=== PATIENT | female | born 1965 | race Caucasian/White ===

== ENCOUNTER → 2016-10-12 | Outpatient (CLI) | payer OTHER ==
--- NOTE | 2016-10-12 15:57 | MA ---
Screening Digital Mammogram With Tomosynthesis Clinical Indications: Routine screening. Technique: Standard digital cephalocaudal and tomosynthesis mediolateral oblique projections are obt ained. The digital images were processed by the [employer] computer aided detection system. Comparison: September 2015, September 2014, July 2013 and December 2011 Breast density: B; There are scattered fibroglandular densities. Findings: CAD was reviewed. No suspicious findings are identified. Impression: Negative mammogram. BI-RADS 1. Recommendation: Routine screening is recommended in one year. [facility] will send a result letter to the patient. Negative mammography should not preclude additional workup of a clinically suspicious finding. The patient's information is entered into a reminder system with a target due date for her next mammo gram.
== END ==
LOC: FIMAGING 15:23
DX: Z12.31 Encounter for screening mammogram for malignant neoplasm of breast (principal)
CPT/HCPCS: G0202

== ENCOUNTER 2017-08-19 05:22 | Day surgery (SDC) | payer OTHER ==
--- NOTE | 2017-08-09 19:21 | GHP ---
[f rep st] PREOP HISTORY AND PHYSICAL DATE OF ADMISSION: 08/19/2017 PREOPERATIVE DIAGNOSIS: Dysfunctional uterine bleeding and menorrhagia. PLANNED PROCEDURE: Hysteroscopy with morcellation of endometrial tissue and an endometrial ablation. INDICATIONS: The patient is a 51-year-old, 3, para 3-0-0-3, who had had normal monthly cycle s until July of 2016. She then has had increased episodes of dysfunctional uterine bleeding. She has bled for up to 6 weeks at a time and then had episodes of 8 weeks of spotting. Labs were obtain ed which were normal pelvic ultrasound showed a thickened endometrium of 1 cm, even after completing bleeding. An endometrial biopsy was performed, which showed benign endometrium in late secretory phase. Manage ment options were reviewed extensively with the patient including expected management, giving the pat ient an additional withdrawal bleed, cycling patient on control pills, Mirena IUD, and a hyster oscopy with morcellation of endometrial tissue and an endometrial ablation. The patient has elected to proceed with the endometrial ablation. Risks and benefits were extensively reviewed with the cameron ent and the patient has been properly consented. She has been informed that there is a 70% amenorrhe a rate with this surgery. MEDICAL HISTORY: ADHD, hypertension, history of depression, possible anxiety, history of urinary incontinence. MEDICATIONS: Magnesium, ROSALIA supplement, super B complex, zinc, 5 HTP supplement, vitamin D, hydroch lorothiazide 25 mg a day, Evekeo 5 mg a day, which is a medicine for ADHD. PAST SURGICAL HISTORY: section with tubal ligation and colonoscopy. ALLERGIES: Penicillin which causes hives. Levaquin which causes a rash. Ceftin which causes a rash . Erythromycin which causes a rash. Sulfa which causes a rash. SOCIAL HISTORY: Patient is . She denies tobacco or drug use. She does drink 4 alcoholic alicia erages a week. FAMILY MEDICAL HISTORY: Noncontributory. PCU RN HISTORY: Menarche age 14. Periods have been monthly until the last several months. She is a 3, para 3-0-0-3. In 1993, she had a spontaneous vaginal delivery of an 8 pound 15 ounce bab y. In 1999, she had a spontaneous vaginal delivery of a 9 pound 6 ounce baby. In 2003, she had a pr imary low transverse section for a 10 pound 2 ounce baby. She had a tubal ligation with her last delivery. The patient denies any history of any abnormal Pap smears or sexually transmitted di seases. REVIEW OF SYSTEMS: A 10-point review of systems is negative with the exception of the above-mentione d pertinent positives. PHYSICAL EXAMINATION: VITAL SIGNS: Patient's blood pressure is 130/78. Her weight is 177. GENERAL APPEARANCE: Alert and oriented x3. PSYCH: Appropriate affect. NECK: Mobile and supple. MUSCULO SKELETAL: Grossly intact. NEUROVASCULAR STATUS: Grossly intact. HEART: Rate is regular regular. LUNGS: Clear to auscultation bilaterally. ABDOMEN: Soft, nondistended, nontender. EXTREMITIES: Reveal no calf tenderness or edema. PELVIC: Exam revealed a mobile midposition uterus with no adnex al masses. DIAGNOSTIC TESTING: Pelvic ultrasound shows uterus measuring 9.8 x 5.5 x 5.1 cm with a thickened end ometrium at 1 cm and normal adnexa. Endometrial biopsy was negative. ASSESSMENT AND PLAN: A 51-year-old 3, para 3-0-0-3 with dysfunctional uterine bleeding. She will undergo a hysteroscopy with morcellation of endometrial tissue and an endometrial ablation. /[id number]/MODL
[2017-08-19] MEDS ORDERED: LIDOCAINE 1% 2 ML INJ ONE (05:54)
[2017-08-19] MEDS ORDERED: LIDOCAINE 1% 2 ML INJ ID PRN (05:58)
[2017-08-19] MEDS ORDERED: LR 1,000 ML IV ONE (05:58)
[2017-08-19] MEDS ORDERED: DOXYCYCLINE INJ 100 MG in NS 250 ML IV ONE (06:00)
[2017-08-19 06:09] VITALS: PULSE 82
--- NOTE | 2017-08-19 06:44 | PDANEPAE ---
ANE History of Present Illness 51 yo F here for hysteroscopy ANE Past Medical History - Cardiovascular History Hx Hypertension: Yes Hx Arrhythmias: No Hx Chest Pain: No Hx Coronary Artery / Peripheral Vascular Disease: No Hx CHF / Valvular Disease: No Hx Palpitations: No - Pulmonary History Hx Asthma/Reactive Airway Disease: Yes Hx Recent Upper Respiratory Infection: No Hx Oxygen in Use at Home: No Hx Sleep Apnea: No Sleep Apnea Screening Result - Last Documented: Negative Pulmonary History Comment: ASTHMA ALLERGIES, SIG HX OF BRONCHITIS - Neurologic History Hx Cerebrovascular Accident: No Hx Seizures: No Hx Dementia: No Neurologic History Comment: ADD - Endocrine History Hx Diabetes: No - Renal History Hx Renal Disorders: No - Liver History Hx Hepatic Disorders: No - Neurological & Psychiatric Hx Hx Neurological and Psychiatric Disorders: Yes 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 - Cancer History Hx Cancer: No - Congenital Disorder History Hx Congenital Disorders: No - GI History Hx Gastrointestinal Disorders: No - Other Health History Other Health History: NONE - Chronic Pain History Chronic Pain: No - Surgical History Prior Surgeries: NONE ANE Review of Systems Review of Systems: - Exercise capacity METS (RN): 4 METS ANE Patient History - Allergies Allergies/Adverse Reactions: azithromycin Allergy (Verified 07/27/17 15:48) cefuroxime [From Ceftin] Allergy (Verified 07/27/17 15:48) levofloxacin [From Levaquin] Allergy (Verified 08/19/17 05:58) Penicillins Allergy (Verified 07/27/17 15:48) Sulfa (Sulfonamide Antibiotics) Allergy (Verified 07/27/17 15:48) - Home Medications Home medications: home medication list seen and reviewed Home Medications: Hydrochlorothiazide 07/27/17 [Last Taken 08/18/17] Amphetamine Sulfate [Evekeo] DAILY 08/19/17 [Last Taken 08/18/17] - NPO status NPO Status: no food or drink >8 hours NPO Since - Liquids (Date): 08/18/17 NPO Since - Liquids (Time): 23:37 NPO Since - Solids (Date): 08/18/17 NPO Since - Solids (Time): 19:45 - Anes Hx Anes Hx: no prior problems - Smoking Hx Smoking Status: Never smoked - Alcohol Use Alcohol Use: Rarely - Family Anes Hx Family Anes Hx: none Family Hx Anesthesia Complications: NONE ANE Labs/Vital Signs - Vital Signs Blood Pressure: 141/93 Heart Rate: 82 Respiratory Rate: 16 O2 Sat (%): 94 Height: 167.64 cm Weight: 77.111 kg ANE Physical Exam - Airway Neck exam: FROM Mallampati Score: Class 2 Mouth exam: normal dental/mouth exam - Pulmonary Pulmonary: no respiratory distress, clear to auscultation - Cardiovascular Cardiovascular: regular rate and rhythym, no murmur, rub, or gallop - ASA Status ASA Status: II ANE Anesthesia Plan Anesthesia Plan: GA w LMA
[2017-08-19] MEDS ORDERED: MIDAZOLAM 2 MG/2 ML VIAL IVP ONE (06:45)
[2017-08-19] MEDS ORDERED: ALBUTEROL 3 ML DEYVIAL IH ONE (06:45)
[2017-08-19] MEDS ORDERED: LIDOCAINE 2% 100 MG/5 ML SYR ONE (07:08)
[2017-08-19] MEDS ORDERED: PROPOFOL 200 MG/20 ML VIAL ONE (07:08)
[2017-08-19] MEDS ORDERED: fentaNYL 100 MCG/2 ML INJ ONE ×2 (07:08→09:09)
--- NOTE | 2017-08-19 07:24 | PDHPUP ---
History & Physical Update H&P update statement: This history and physical update is based on an assessment of the patient which was completed after admission or registration (within 24 hours), but prior to the surgery/procedure. H&P update: H&P reviewed & patient examined, no change in patient's condition since H&P completed
[2017-08-19] MEDS ORDERED: DEXAMETHASONE 4 MG/ML VIAL ONE (07:53)
[2017-08-19] MEDS ORDERED: ONDANSETRON 4 MG/2 ML VIAL ONE (07:53)
[2017-08-19] MEDS ORDERED: ALBUTEROL 3 ML DEYVIAL IH PRN (08:01)
[2017-08-19] MEDS ORDERED: NALOXONE HCL 0.4 MG/ML INJ IVP PRN (08:01)
[2017-08-19] MEDS ORDERED: ONDANSETRON 4 MG/2 ML VIAL IVP PRN (08:01)
[2017-08-19] MEDS ORDERED: OXYCODONE/APAP 5/325 TAB PO PRN (08:01)
[2017-08-19] MEDS ORDERED: HYDROCODONE/APAP 5/325 TAB PO PRN (08:01)
[2017-08-19] MEDS ORDERED: PROMETHAZINE HCL 25 MG/ML INJ IVP PRN (08:01)
[2017-08-19] MEDS ORDERED: ACETAMINOPHEN 500 MG TAB PO PRN (08:01)
[2017-08-19] MEDS ORDERED: SILVER NITRATE APPLICATOR 1 APPL TP ONE (08:17)
--- NOTE | 2017-08-19 08:31 | POSTOPPROG ---
Post Op Note Date of Operation: 08/19/17 Surgeon: Shira Park Anesthesiologist: maribel Anesthesia: LMA Pre-op Diagnosis: menorrhagia Post-op Diagnosis: same Procedure: hysteroscopy, morecellation of endometrial tisse and endometrial ablation Findings: thickened endometrium Inf/Abcess present in the surg proc area at time of surgery?: No EBL: Minimal Specimen(s): endometrial currettings
[2017-08-19] MEDS ORDERED: KETOROLAC 30 MG/1 ML SDV ONE (09:09)
[2017-08-19] MEDS ORDERED: fentaNYL 100 MCG/2 ML INJ IVP PRN (09:10)
[2017-08-19] MEDS ORDERED: KETOROLAC 30 MG/1 ML SDV IVP ONE (09:15)
[2017-08-19 09:49] VITALS: TEMP 96.8
[2017-08-19] MEDS ORDERED: DIAZEPAM 10 MG/2 ML SYR ONE (09:55)
[2017-08-19] MEDS ORDERED: DIAZEPAM 10 MG/2 ML SYR IVP ONE (10:00)
[2017-08-19 10:07] VITALS: BP 139/89
[2017-08-19 10:31] VITALS: RESP 16; O2SAT 93
--- NOTE | 2017-08-19 14:36 | GOP ---
[f rep st] OPERATIVE REPORT DATE OF OPERATION: 08/19/2017 SURGEON: Shira Park DO ANESTHESIA: General. ANESTHESIOLOGIST: Catalino Celaya MD. PREOPERATIVE DIAGNOSIS: Dysfunctional uterine bleeding and menorrhagia. POSTOPERATIVE DIAGNOSIS: Dysfunctional uterine bleeding and menorrhagia. PROCEDURE PERFORMED: Hysteroscopy with morcellation of endometrial tissue and endometrial ablation. FINDINGS: 1. Mobile midposition uterus with no adnexal masses. Uterus sounded to 9 cm. 2. Hysteroscopic findings: Thickened endometrium. Bilateral tubal ostia visualized. No obvious po lyps, fibroids, or masses. SPECIMENS: Endometrial curettings. ESTIMATED BLOOD LOSS: 10 cc. INDICATIONS: Patient is a 51-year-old 3, para 3-0-0-3, who has who had normal monthly cycles until July 2016, and she has begun having increased episodes of dysfunctional uterine bleeding si nce then. She has bled for up to 6 weeks at a time and has had episodes of 8 weeks of spotting. Lab s were obtained, which were normal. Pelvic ultrasound showed a thickened endometrium, even after she had just finished bleeding. An endometrial biopsy was benign. Management options were reviewed wit h the patient. Patient elected to proceed with a hysteroscopy with morcellation of endometrial tissu e and an endometrial ablation. Risks and benefits of the procedure were reviewed with the patient. Patient was properly consented. DESCRIPTION OF PROCEDURE: Patient was taken to the operating room with intravenous fluids in place. She was then placed on the operating room table in the dorsal supine position where general anesthes ia was obtained. She was given 100 mg of doxycycline intravenously. She was then repositioned into the dorsal lithotomy position with the Samyllofin stirrups and prepped and draped in normal sterile fas hion. Exam under anesthesia revealed a mobile, midposition uterus with no adnexal masses. A speculu m was then placed in the patient's vagina. An Allis clamp was used to grasp the anterior lip of the cervix, and the cervix was then carefully dilated to allow for the introduction of an operative hyste roscope. The hysteroscope was then introduced with fluid medium running. The Allis clamp kept comin g off the uterus, so a single-tooth tenaculum was used to grasp the anterior lip of the cervix. A sm all questionable polyp in the posterior endometrium was noted. The morcellator was then introduced, and a circumferential morcellation was performed. The uterus then sounded to 9 cm. The cervical talya gth was 6 cm. The Jeannette was then introduced with a cavity length of 6 cm, and the cavity assessment was performed and passed. Endometrial ablation was performed without difficulty. The Jeannette was then withdrawn. The hysteroscope was then reintroduced, and a diffusely ablated endometrial cavity was noted. A sm all laceration in the anterior cervix was noted, and it was repaired with 2-0 Vicryl in a figure-of-e ight stitch. Hemostasis was assured after that. Instruments were then removed the patient's vagina. Patient was returned to the dorsal supine position where she was easily awakened from anesthesia. Sponge count was correct. Patient was transported to the recovery room in stable condition. /[id number]/MODL
--- NOTE | 2017-08-22 16:22 | POSTANESTH ---
Post Anesthetic Evaluation Cardiovascular Status: Normal, Stable, Similar to Pre-Op Cond Respiratory Status: Normal, Stable, Similar to Pre-op Cond. Level of Consciousness/Mental Status: Can Participate in Eval, Alert and Oriented Pain Control: Adequate, Prn Tx Ordered Nausea/Vomiting Control: Adequate, Prn Tx Ordered Complications Possibly Related to Anesthesia: None Noted
== END 2017-08-19 10:37 | disposition home or self-care (01) ==
LOC: FSGY 05:22
PROVIDERS: ATTEND Obstetrics & Gynecology
PROC: 0U5B8ZZ Destruction of Endometrium, Via Natural or Artificial Opening Endoscopic (ICD-10-PCS; principal; 2017-08-19 07:15)
DX: N93.8 Other specified abnormal uterine and vaginal bleeding (principal); N92.0 Excessive and frequent menstruation with regular cycle; I10 Essential (primary) hypertension; F90.9 Attention-deficit hyperactivity disorder, unspecified type; Z88.0 Allergy status to penicillin; Z88.2 Allergy status to sulfonamides
CPT/HCPCS: 58563; C1782; J1100; J1885; J2001; J2250; J2405; J2704; J3010

== ENCOUNTER → 2017-10-17 | Outpatient (CLI) | payer OTHER | LOC: FIMAGING 12:22 | PROVIDERS: ATTEND Family Medicine | DX: Z12.31 Encounter for screening mammogram for malignant neoplasm of breast (principal) ==

== ENCOUNTER 2018-09-19 07:15 | Inpatient (IN) | payer OTHER ==
--- NOTE | 2018-09-18 23:29 | GHP ---
DATE OF ADMISSION: 09/19/2018 HISTORY: Upon presentation, the patient is a 52-year-old para 3 white female, who has had dysfunctional perimenopausal bleeding since the summer. The patient had a neg EMBx then an endometrial ablation to manage the bleeding in August 2017. That took care of the bleeding, but since that time, patient has had episodes of pelvic pain beginning in June 2018. The patient has been evaluated in the emergency room for these episodes of intense pain and menstrual-type cramping. Patient had a CAT scan performed showing an endometrial fluid collection that was complex in nature that was 4 cm. The patient had a followup Ultrasound 2 months later, which revealed an increase in the endometrial fluid at 5.5 cm. The patient had an attempted procedure in the office to access the endometrial fluid collection and to dilate the cervix for drainage. This was unsuccessful and very painful for the patient. The patient now wants definitive management to resolve the pelvic pain, as well as have definitive evaluation that there is nothing pathologic above in the uterus. The patient desires an abdominal hysterectomy. She opts for this route to be able to keep her cervix, which she feels is closely tied to her sexual pleasure. The patient wants a supracervical hysterectomy, as well as a bilateral salpingectomy. The patient has started to get some hormone variability, but does not want to have her ovaries removed. The patient has been counseled about the potential need for additional surgery with a trachelectomy or surgery to remove ovarian cysts or concern for ovarian cancer. Risks and benefits of the surgery discussed. The patient will sign consent form on the day of surgery. The patient intends for the surgery to be combined with Dr. Henry of plastic surgery to perform an abdominoplasty. PAST MEDICAL HISTORY: Hypertension, attention deficit hyperactivity disorder, depression, perimenopausal symptoms and pelvic pain as noted above. PAST SURGICAL HISTORY: section with tubal ligation. PAST OBSTETRIC HISTORY: Three term pregnancies. Two delivered vaginally in 1993 and 1999. section with tubal ligation in 2003. ALLERGIES: Penicillin, cephalosporins, Levaquin, erythromycin, and sulfa all causing rashes. MEDICATIONS: Ritalin, HCTZ, and multiple other supplements. SOCIAL HISTORY: The patient is and lives with her and report that they have a very active, wonderful sexual life. The patient's youngest child lives at a boarding school in [place], and she has an 18-year-old and 20-year-old. The patient is a nonsmoker. No alcohol or drug use. FAMILY HISTORY: Both parents with hypertension, Father and sisters with depression, Dad with hypothyroidism. LABORATORY DATA: Recent labs reveal a complete metabolic panel and a CBC that were normal early September 2018. Hemoglobin and hematocrit 14 and 42. Platelets normal. IMAGING: Most recent ultrasound is July 2018, at which time the uterus was measuring 11 x 7.5 x 7.7 cm with an endometrial thickness of 3.95 cm, filled with a complex fluid collection 5.6 x 5.5 mL. Bilateral ovaries were seen and were normal. PHYSICAL EXAMINATION: VITAL SIGNS: Blood pressure 120/70, weight 171 pounds, afebrile. GENERAL: At the time of preop, the patient is a well-developed, well -nourished white female in no physical discomfort. General description the patient is mildly anxious discussing the variables of having surgery. LUNGS: Clear to auscultation bilaterally. CARDIOVASCULAR: Regular rate and rhythm. ABDOMEN: Soft, nontender. PELVIC: Exam was deferred. EXTREMITIES: Nontender , no edema. ASSESSMENT: Pelvic pain with a complex fluid collection in the endometrium. PLAN: Will proceed with supracervical abdominal hysterectomy with bilateral salpingectomy in concert with Dr. Henry of plastic surgery. We will have the patient sign consent form on the morning of surgery. She will receive preoperative antibiotics and have on SCDs during the procedure. /[id number]/MODL MTDD
[~2018-09-19 07:15] MED LIST: ALBUTEROL 60 PUFFS/8 GM MDI IH PRN; BACITRACIN ZINC 0.5 OZ OINTTUBE TP ONE; BUPIVACAINE 0.5% 30 ML SDV ONE; EPINEPHrine 1 MG/ML INJ ONE; LIDOCAINE 1% 300 MG/30 ML SDV ONE; METHYLENE BLUE 0.5% 50 MG/10 ML AMP ONE; SURGIFLO MATRIX KIT WITH THROMBIN 8 ML TP ONE; VANCOMYCIN 1 GM in NS 250 ML IV ONE; VANCOMYCIN HCL/NORMAL SALINE 250 ML IV ONE; VANCOMYCIN PHARMACY TO DOSE MISC ONE
[2018-09-19] MEDS ORDERED: LIDOCAINE 1% 2 ML INJ ID PRN (07:23)
[2018-09-19] MEDS ORDERED: LR 1,000 ML IV ONE (07:23)
--- NOTE | 2018-09-19 07:52 | PDANEPAE ---
ANE History of Present Illness Abdominal hyst, salpingectomy, abdominoplasty ANE Past Medical History - Cardiovascular History Hx Hypertension: Yes Hx Arrhythmias: No Hx Chest Pain: No Hx Coronary Artery / Peripheral Vascular Disease: No Hx CHF / Valvular Disease: No Hx Palpitations: No - Pulmonary History Hx Asthma/Reactive Airway Disease: Yes Hx Recent Upper Respiratory Infection: No Hx Oxygen in Use at Home: No Hx Sleep Apnea: No Sleep Apnea Screening Result - Last Documented: Negative Pulmonary History Comment: ASTHMA ALLERGIES, SIG HX OF BRONCHITIS - Neurologic History Hx Cerebrovascular Accident: No Hx Seizures: No Hx Dementia: No Neurologic History Comment: ADD - Endocrine History Hx Diabetes: No - Renal History Hx Renal Disorders: No - Liver History Hx Hepatic Disorders: No - Neurological & Psychiatric Hx Hx Neurological and Psychiatric Disorders: Yes 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 ADD - Cancer History Hx Cancer: No - Congenital Disorder History Hx Congenital Disorders: No - GI History Hx Gastrointestinal Disorders: No Gastrointestinal History Comment: OCCAS ACID REFLUX - Other Health History Other Health History: NONE - Chronic Pain History Chronic Pain: Yes (PELVIC PAIN) - Surgical History Prior Surgeries: C SECTION. UTERINE ABLATION. COLONOSCOPY ANE Review of Systems Review of systems is: negative Review of Systems: - Exercise capacity METS (RN): 5 METS ANE Patient History - Allergies Allergies/Adverse Reactions: azithromycin Allergy (Verified 09/04/18 11:37) Hives cefuroxime [From Ceftin] Allergy (Verified 09/04/18 11:37) Hives/Rash erythromycin base Allergy (Verified 09/04/18 11:37) Rash levofloxacin [From Levaquin] Allergy (Verified 09/04/18 11:37) Rash Penicillins Allergy (Verified 09/04/18 11:37) Rash/Swollen Joints Sulfa (Sulfonamide Antibiotics) Allergy (Verified 09/04/18 11:37) Unknown - Home Medications Home medications: home medication list seen and reviewed Home Medications: Hydrochlorothiazide [HCTZ (*)] 25 mg PO DAILY #0 07/27/17 [Last Taken 09/18/18] Albuterol [Proventil Inhaler HFA (*)] 1 - 2 puffs IH Q4H PRN 09/04/18 [Last Taken 09/19/18 07:45] Cholecalciferol Vit D3 [Vitamin D3 2000 units tab (OTC)] 2,000 units PO DAILY [Last Taken 09/05/18] Dextroamphetamine/Amphetamine [Mydayis ER 12.5 mg Capsule] 12.5 mg PO DAILY [Last Taken 09/18/18] Herbals/Supplements -Info Only 1 ea PO DAILY 09/04/18 [Last Taken 09/05/18] Ibuprofen [Motrin (*)] 200 mg PO DAILY PRN 09/04/18 [Last Taken 09/05/18] Vitamin B Complex [Vitamin B Complex (OTC)] 1 each PO DAILY 09/04/18 [Last Taken 09/05/18] - NPO status NPO Status: no food or drink >8 hours - Anes Hx Anes Hx: post operative cognitive dysfunction - Smoking Hx Smoking Status: Never smoked - Family Anes Hx Family Anes Hx: none Family Hx Anesthesia Complications: NONE ANE Labs/Vital Signs - Vital Signs Vital Signs: reviewed preoperatively; see RN documention for details Height: 167.64 cm Weight: 76.204 kg ANE Physical Exam - Airway Neck exam: FROM Mallampati Score: Class 1 Mouth exam: normal dental/mouth exam - Pulmonary Pulmonary: no respiratory distress - Cardiovascular Cardiovascular: regular rate and rhythym - ASA Status ASA Status: II ANE Anesthesia Plan Anesthesia Plan: general endotracheal anesthesia, spinal Regional Anesthesia: POPC/PSR (Spinal morphine for post op pain per surgeon req)
[2018-09-19] MEDS ORDERED: morphINE PF 5 MG/10 ML INJ ONE (08:39)
[2018-09-19] MEDS ORDERED: PROPOFOL 200 MG/20 ML VIAL ONE (09:00)
[2018-09-19] MEDS ORDERED: ONDANSETRON 4 MG/2 ML VIAL ONE (09:00)
[2018-09-19] MEDS ORDERED: LIDOCAINE 2% 100 MG/5 ML SYR ONE (09:00)
[2018-09-19] MEDS ORDERED: DEXAMETHASONE 4 MG/ML VIAL ONE ×2 (09:00→09:01)
[2018-09-19] MEDS ORDERED: PROPOFOL/EMULSION 500 MG/50 ML BOTTLE IV ONE ×3 (09:25→11:50)
[2018-09-19] MEDS ORDERED: ALBUTEROL 3 ML DEYVIAL IH PRN (10:40)
[2018-09-19] MEDS ORDERED: HYDROmorphONE/DILAUDID 2 MG/ML INJ IVP PRN (10:40)
[2018-09-19] MEDS ORDERED: MEPERIDINE 25 MG/0.5 ML AMP IVP PRN (10:40)
[2018-09-19] MEDS ORDERED: fentaNYL 100 MCG/2 ML INJ IVP PRN (10:40)
[2018-09-19] MEDS ORDERED: oxyCODONE IR 5 MG TAB PO PRN (10:40)
[2018-09-19] MEDS ORDERED: NALOXONE HCL 0.4 MG/ML INJ IVP PRN (10:40)
[2018-09-19] MEDS ORDERED: DEXAMETHASONE 4 MG/ML VIAL IVP PRN (10:40)
[2018-09-19] MEDS ORDERED: HYDROCODONE/APAP 5/325 TAB PO PRN (10:40)
[2018-09-19] MEDS ORDERED: PROMETHAZINE HCL 25 MG/ML INJ IVP PRN (10:40)
[2018-09-19] MEDS ORDERED: ONDANSETRON 4 MG/2 ML VIAL IVP PRN (10:40)
[2018-09-19] MEDS ORDERED: ACETAMINOPHEN 500 MG TAB PO PRN (10:40)
[2018-09-19] MEDS ORDERED: LABETALOL HCL 20 MG/4 ML INJ IVP PRN (10:40)
--- NOTE | 2018-09-19 10:40 | POSTANESTH ---
Post Anesthetic Evaluation Cardiovascular Status: Normal, Stable, Similar to Pre-Op Cond Respiratory Status: Normal, Stable, Similar to Pre-op Cond. Level of Consciousness/Mental Status: Can Participate in Eval, Mildly Sleepy, Arousable Pain Control: Adequate, Prn Tx Ordered Nausea/Vomiting Control: Adequate, Prn Tx Ordered Complications Possibly Related to Anesthesia: None Noted
[2018-09-19] MEDS ORDERED: ROCURONIUM 50 MG/5 ML VIAL ONE ×2 (11:25)
--- NOTE | 2018-09-19 11:25 | PDHPUP ---
History & Physical Update H&P update statement: This history and physical update is based on an assessment of the patient which was completed after admission or registration (within 24 hours), but prior to the surgery/procedure. H&P update: no change in patient's condition since H&P completed
--- NOTE | 2018-09-19 11:28 | POSTOPPROG ---
Post Op Note Date of Operation: 09/19/18 Surgeon: Shantel Mathis (co-surgeon Dianelys Henry) Client Analyst: Mikki Cedilol Anesthesiologist: Nate Melgar Anesthesia: GET(General Endotracheal), Spinal (for duramorph placement) Pre-op Diagnosis: pelvic pain, complex fluid in endometrium Post-op Diagnosis: same Indication: 52y/o with pelvic pain since fluid collection after endometrial ablation Procedure: supracervical hysterectomy, bilateral salpingectomies, right oophorectomy Findings: uterus 10x7 cm, min scar to ant cx,distended left tubal stump, ROV bld Inf/Abcess present in the surg proc area at time of surgery?: No Depth: Organ Space EBL: 100-500 (200cc) Total fluids administered: 1300 at end of hyst Complications: bleeding from right ovary after removal of tube, right ureter seen and peristalsing normally. bowel scarred under left ovary - unable to visualize ureter on left Specimen(s): uterus, both tubes, right ovary
[2018-09-19] MEDS ORDERED: KETOROLAC 30 MG/1 ML SDV ONE (11:39)
[2018-09-19] MEDS ORDERED: LACTULOSE 20 GM/30 ML UDCUP PO PRN (11:42)
[2018-09-19] MEDS ORDERED: BISACODYL 10 MG SUPP PR PRN (11:42)
[2018-09-19] MEDS ORDERED: MAGNESIUM HYDROXIDE 30 ML UDCUP PO PRN (11:42)
[2018-09-19] MEDS ORDERED: POLYETHYLENE GLYCOL 3350 17 GM PKT PO PRN (11:42)
[2018-09-19] MEDS ORDERED: LR 1,000 ML IV SCH (12:00)
[2018-09-19] MEDS ORDERED: BACITRACIN ZINC 0.5 OZ OINTTUBE TP ONE (12:17)
[2018-09-19] MEDS ORDERED: PHENYLEPHRINE HCL 100 MCG/ML SYR ONE (12:20)
[2018-09-19] MEDS: ONDANSETRON 4 MG/2 ML VIAL IVP PRN ×2 (16:57→20:53)
[2018-09-19] MEDS: ACETAMINOPHEN 325 MG TAB PO SCH (17:37)
[2018-09-19] MEDS: KETOROLAC 30 MG/1 ML SDV IVP SCH ×2 (18:59→19:05)
[2018-09-19] MEDS ORDERED: diphenhydrAMINE 25 MG CAP PO PRN (19:23)
--- NOTE | 2018-09-19 19:28 | SOAPPROG ---
SOAP Progress Note Assessment/Plan: Assessment: s/p subtotal abdominal hysterectomy and RSO and LS - POD [address] Henry Plan: Routine care, pain management good on Duramorph 09/19/18 19:24 Subjective: Pt doing well. Had small amt nausea several hours ago - better now and pedro water/crackers and smoothie. Tried to amb and got light-headed first time out of bed. Pain is well managed with Duramorph and Toradol. Having hot flashes - not much different than typical. Plan to start oral Keflex per Dr Henry tomorrow Objective: Vital Signs Temp Pulse Resp BP Pulse Ox 36.2 C 83 18 112/73 93 09/19/18 18:32 09/19/18 18:32 09/19/18 18:32 09/19/18 18:32 09/19/18 18:32 09/18/18 09/19/18 09/20/18 05:59 05:59 05:59 Intake Total 3120 Output Total 1353 Balance 1767 Physical Exam - Physical Exam General Appearance: WD/WN Abdomen: non-tender (abd binder in place - not removed per Dr Henry's recs.), soft, other (Davol drains both with drainage L>R) Skin: normal color, warm/dry Extremities: normal range of motion, non-tender, pedal edema (none) ICD10 Worksheet Patient Problems: Problems Problem Status Onset S/P right oophorectomy Acute Status post bilateral salpingectomy Acute S/P abdominal supracervical subtotal hysterectomy Acute
--- NOTE | 2018-09-19 20:52 | SOAPPROG ---
SOAP Progress Note Assessment/Plan: Assessment: 52 y/o POD 0 s/p JOSEPH and abdominoplasty Plan: Some active bleeding from suture line and JALEEL drain along right flank. We removed the bloody bandages and abdominal binder and replaced wrapping tightly and will apply ice. Check H/H and will add Estradiol patch 0.1mg tonight. Spoke to Dr Moser and Elaine and they will assess after labs and prn. 09/19/18 20:49 Subjective: Called to assess patient secondary to increased bleeding from her incision site on right flank. She is having significant hot flashes but overall is not having significant pain in her incision. She is now anxious and worried about internal bleeding. Objective: Vital Signs Temp Pulse Resp BP Pulse Ox 36.6 C 78 16 102/68 94 09/19/18 19:55 09/19/18 19:55 09/19/18 19:55 09/19/18 19:55 09/19/18 19:55 09/18/18 09/19/18 09/20/18 05:59 05:59 05:59 Intake Total 3120 Output Total 1353 Balance 1767 Physical Exam - Physical Exam General Appearance: WD/WN, alert, mild distress Neck: non-tender, full range of motion, supple Respiratory: chest non-tender, lungs clear, normal breath sounds Cardiac/Chest: regular rate, rhythm Abdomen: normal bowel sounds, other (oozing from suture line and JALEEL drain, + sanguous no clots) Back: Other (eccomosis along flank R>L) Extremities: swelling (no), Katiana's sign (neg) ICD10 Worksheet Patient Problems: Problems Problem Status Onset S/P abdominal supracervical subtotal hysterectomy Acute S/P right oophorectomy Acute Status post bilateral salpingectomy Acute
[2018-09-19] MEDS ORDERED: ESTRADIOL VIVELLE 0.1 MG PATCH TD SCH (21:00)
--- NOTE | 2018-09-19 23:47 | GOP ---
DATE OF OPERATION: 09/19/2018 SURGEON: Cherrie Henry Jr., MD DRIVER/MERCHANDISER: Steven Perry CST, by surgeon request. ANESTHESIA: General inhalational anesthetic. ANESTHESIOLOGIST: Nate Melgar MD PREOPERATIVE DIAGNOSIS: Abdominal lipodystrophy with rectus diastasis. POSTOPERATIVE DIAGNOSIS: Abdominal lipodystrophy with rectus diastasis. PROCEDURE PERFORMED: Abdominoplasty with adjuvant flank lipoplasty. FINDINGS: ESTIMATED BLOOD LOSS: During abdominal plasty, 20 cc. INDICATIONS: Th patient is a 52-year-old white female with a history of pelvic pain in addition to c osmetic abdominal concerns. She was seen and evaluated by Dr. Shantel Mathis, from the [facility] service, and deemed an excellent candidate for a transabdominal hysterectomy. We elected to perform a concomi tant abdominoplasty with adjuvant flank liposuction in the same setting, and she was brought to the o perating room for that purpose. DESCRIPTION OF PROCEDURE: After the risks and benefits of the procedure were explained to the patien t, highlighting bleeding, infection, damage to vessels or nerves, numbness, weakness, seroma formatio n, hypertrophic or visible scarring, wound breakdown or skin loss, poor cosmetic outcome, contour irr egularities, and need for additional procedures, formal operative consent was obtained. She was seen in the operating room by Dr. Mathis, where an uncomplicated transabdominal hysterectomy was performe d. At the completion of her portion of the procedure, new drapes and instrumentation were utilized. The procedure began by placing tumescent solution into the flanks and a stitch was then placed in the umbilicus. A periumbilical incision was made using a #15 blade. Meticulous Metzenbaum scissor diss ection was used to dissect out the umbilical stalk, leaving broad abdominal wall attachments to maxim ize vascularity. The inferior abdominoplasty incision was then made below the previous incision for the hysterectomy using a 10 blade. Electrocautery was used to dissect down to the anterior abdominal wall fascia, and the abdominoplasty flap was elevated around the previous incision and around the um bilical stalk. Significant rectus diastasis was observed and repaired in the midline using buried fi [id number] 0 Nurolon sutures and oversewn with a 0 V-Loc 180 suture. She was placed in a flexed position on the operating room table. Skin and fat excess were marked and sharply excised. The area for the new umbilicus was marked and defatted from below. The anterior a bdominal wall fascia was injected with 0.25% plain Marcaine. Two JALEEL drains were placed. The pocket was irrigated with normal saline. Hemostasis again assured. Anna fascia was then closed using 2-0 Vicryl suture. Skin edges reapproximated using everting deep dermal 3-0 Monocryl suture and further everted using surgical alexandra. Small dog ears were addressed with excision bilaterally until a smo oth contour was achieved. Liposuction was then performed in the flanks using a 3.7 and 3 mm VASER maldonado ction-assisted lipoplasty cannula until the desired contour was achieved. Approximately 700 cc of li poaspirate was removed. Approximately 1000 cc of tumescent was previously infiltrated. A horizontal elliptical incision was then made at the level of the neoumbilicus, and the umbilical st alk was delivered under minimal tension. It was inset using 3-0 Monocryl and 5-0 nylon suture. Exce llent abdominal contour was appreciated. Two previously placed JALEEL drains were placed to bulb suction . Bacitracin, Xeroform, 4 x 4's, ABDs and a compressive abdominal binder were placed in the operatin g room. She was extubated in the OR, taken to the recovery room awake and in stable condition. DRAINS: 2 JALEEL drains placed. COMPLICATIONS: None. /[id number]/MODL
[2018-09-20] MEDS: ACETAMINOPHEN 325 MG TAB PO SCH ×7 (00:59→20:09)
[2018-09-20] MEDS: KETOROLAC 30 MG/1 ML SDV IVP SCH ×4 (01:00→18:34)
[2018-09-20] MEDS: ONDANSETRON 4 MG/2 ML VIAL IVP PRN ×2 (01:08→05:49)
[2018-09-20] MEDS: SENNOSIDES/DOCUSATE SODIUM TAB PO SCH ×3 (05:50→20:10)
[2018-09-20] MEDS: ENOXAPARIN 40 MG/0.4 ML SYR SC SCH (09:28)
--- NOTE | 2018-09-20 10:16 | PDMN ---
Medical Necessity Medical necessity: Pt meets inpt criteria per MD order and [facility] [place] [facility], Hysterectomy, Abdominal, 2 days, [facility] inpt only list. 52 y/o w/pelvic pain, complex fluid in endometrium admitted for supracervical abd hysterectomy, bilat salpingectomies, and R oophorectomy followed by abdominoplasty w/adjuvant flank lipoplasty. Of note, pt w/decrease in H&H and hypotension post-op, anticipate> 2MN for ongoing eval/post-op care.
--- NOTE | 2018-09-20 11:32 | SOAPPROG ---
SOAP Progress Note Assessment/Plan: Assessment: s/p subtotal abdominal hysterectomy and RSO and LS - POD [address] Henry increased drainage from incision last night with soaked bandages - no further today but good drainage through JALEEL - quang left anemia with low B/P and passed out after sitting up for quite a while Plan: Routine care, pain management good on Duramorph - only using toradol and tyl. will begin iron pc with Dr Henry's office and they rec starting abx today. 09/19/18 19:24 09/20/18 11:20 Subjective: Pt doing well - was able to get up and amb this am in room and was sitting in chair for quite a while and then passed out - was found to have POx at 87 and was placed on O2. Pain well controlled with Toradol and tyl. Hasn't urinated yet - lares out at 6a. Sindy reg diet - no nausea. [place] much better with E2 patch and much reduced hot flashes (states her usual freq is 6/noc). We disc using a E2 patch to optimize sleep x 2 months for maximal healing. She would like to. Also is anxious due to the drainage last noc that might recur and possible pain after Duramorph and wants to stay tonight in hospital. Objective: Vital Signs Temp Pulse Resp BP Pulse Ox 36.2 C 76 16 89/60 L 93 09/20/18 09:02 09/20/18 09:02 09/20/18 09:02 09/20/18 09:02 09/20/18 09:02 Laboratory Results 09/20/18 06:40 09/19/18 09/20/18 09/21/18 05:59 05:59 05:59 Intake Total 4120 Output Total 2398 Balance 1722 - Pending Discharge Pending Discharge Within 24 Hours: Yes Pending Discharge Date: 09/21/18 Pending Discharge Time: 11:00 Physical Exam - Physical Exam General Appearance: WD/WN Abdomen: non-tender, soft, other (abd binder in place, firm - no drainage. Drains working) Pelvic Exam: deferred Skin: normal color, warm/dry Extremities: non-tender, pedal edema (minimal) Neuro/Psych: no motor/sensory deficits, alert, normal mood/affect ICD10 Worksheet Patient Problems: Problems Problem Status Onset S/P abdominal supracervical subtotal hysterectomy Acute S/P right oophorectomy Acute Status post bilateral salpingectomy Acute
[2018-09-20] MEDS ORDERED: FERROUS SULFATE 140 MG TAB.ER PO SCH (12:00)
[2018-09-20] MEDS ORDERED: VANCOMYCIN HCL/NORMAL SALINE 250 ML IV SCH (12:00)
--- NOTE | 2018-09-20 12:45 | SOAPPROG ---
SOAP Progress Note Assessment/Plan: Assessment: 52 yo female s/p abdominal hyst, abdominoplasty with good analgesia from spinal morphine and Toradol. Expect some increase in pain as spinal effect wanes. Plan: Continue po/IV analgesics 09/20/18 12:42 Subjective: good pain relief, "passed out" in chair today, light headed. Increased fluids, po intake with improved symptoms Objective: neruo grossly intact, awake alert Vital Signs Temp Pulse Resp BP Pulse Ox 36.3 C 83 16 103/60 93 09/20/18 12:00 09/20/18 12:00 09/20/18 12:00 09/20/18 12:00 09/20/18 12:00 Laboratory Results 09/20/18 06:40 09/19/18 09/20/18 09/21/18 05:59 05:59 05:59 Intake Total 4120 Output Total 2968 Balance 1722 - Time Spent With Patient Time Spent With Patient: 10 min ICD10 Worksheet Patient Problems: Problems Problem Status Onset S/P abdominal supracervical subtotal hysterectomy Acute S/P right oophorectomy Acute Status post bilateral salpingectomy Acute
[2018-09-20] MEDS: HYDROCHLOROTHIAZIDE 25 MG TAB PO SCH (18:10)
--- NOTE | 2018-09-20 20:00 | SOAPPROG ---
SOAP Progress Note Assessment/Plan: Assessment: s/p subtotal abdominal hysterectomy and RSO and LS - POD 1 1/2 --NO FURTHER SOAKED DRSG abdominoplasty with Dr Henry - no further today but good drainage through JALEEL ambulated well and able to urinate anemia - on iron Plan: Per Dr Henry - defer any further abx - they had prescribed Keflex and pt is allergic. Ask myriam if he wanted me to give Vanco for couple more doses but he did not want any further. Pt requests Pneumovax. h/o asthma and several bouts of pneumonia in past. cont ibu/tyl and oxy prn 09/19/18 19:24 09/20/18 11:20 09/20/18 19:56 Subjective: Pt doing much better. able to amb and urinated large amt last time. no nausea and eating regular. very happy to not have hot flashes. no bleeding. no further soaked drsg. Pain managed by ibu/tyl -- states creeping up a bit to . Objective: Vital Signs Temp Pulse Resp BP Pulse Ox 37.3 C 91 16 105/67 93 09/20/18 19:42 09/20/18 19:42 09/20/18 19:42 09/20/18 19:42 09/20/18 19:42 Laboratory Results 09/20/18 06:40 09/19/18 09/20/18 09/21/18 05:59 05:59 05:59 Intake Total 4120 1500 Output Total 2398 710 Balance 1722 790 - Pending Discharge Pending Discharge Within 24 Hours: Yes Pending Discharge Date: 09/21/18 Pending Discharge Time: 11:00 Physical Exam - Physical Exam General Appearance: WD/WN, alert, no apparent distress Abdomen: non-tender (approp post op tenderness), other (abd binder tight and no drainage) Skin: normal color, warm/dry Extremities: normal range of motion, non-tender Neuro/Psych: no motor/sensory deficits, alert, normal mood/affect ICD10 Worksheet Patient Problems: Problems Problem Status Onset S/P abdominal supracervical subtotal hysterectomy Acute S/P right oophorectomy Acute Status post bilateral salpingectomy Acute
[2018-09-20] MEDS ORDERED: PNEUMOCOCCAL 0.5ML VACCINE VIAL (PNEUMOVAX 23) IM ONE (20:03)
[2018-09-20] MEDS: IBUPROFEN 600 MG TAB PO SCH (20:09)
[2018-09-20] MEDS: FERRO-SEQUELS 65 MG TAB.ER PO SCH (20:15)
[2018-09-21] MEDS: ACETAMINOPHEN 325 MG TAB PO SCH ×4 (00:13→12:44)
[2018-09-21] MEDS: oxyCODONE IR 5 MG TAB PO PRN ×2 (01:08→10:06)
[2018-09-21] MEDS: IBUPROFEN 600 MG TAB PO SCH ×2 (03:13→09:27)
[2018-09-21] MEDS: ONDANSETRON 4 MG/2 ML VIAL IVP PRN (06:29)
[2018-09-21] MEDS: FERRO-SEQUELS 65 MG TAB.ER PO SCH (08:29)
[2018-09-21] MEDS: ENOXAPARIN 40 MG/0.4 ML SYR SC SCH (08:30)
[2018-09-21 08:44] VITALS: BP 93/61
[2018-09-21] MEDS: SENNOSIDES/DOCUSATE SODIUM TAB PO SCH (09:28)
[2018-09-21] MEDS: HYDROCHLOROTHIAZIDE 25 MG TAB PO SCH (09:29)
--- NOTE | 2018-09-21 13:24 | SOAPPROG ---
SOAP Progress Note Assessment/Plan: Assessment: s/p subtotal abdominal hysterectomy and RSO and LS - POD 1 --NO FURTHER SOAKED DRSG abdominoplasty with Dr Henry good drainage through JALEEL - reducing ambulated well and able to urinate anemia - on iron Plan: Per Dr Henry - defer any further abx - Pt requests Pneumovax. h/o asthma and several bouts of pneumonia in past. cont ibu/tyl and oxy prn - using sparingly and good pain control 09/19/18 19:24 09/20/18 11:20 09/20/18 19:56 09/21/18 13:21 Subjective: Pt doing much better. Feeling very well on estrogen. Amb well. not dizzy. No bleeding. Reg diet and no nausea. Slept well. Pain well controlled with ibu/tyl and has only taken 2 oxy. Objective: Vital Signs Temp Pulse Resp BP Pulse Ox 36.4 C 93 16 93/61 L 94 09/21/18 08:42 09/21/18 08:42 09/21/18 08:42 09/21/18 08:42 09/21/18 08:42 Laboratory Results 09/20/18 06:40 09/20/18 09/21/18 09/22/18 05:59 05:59 05:59 Intake Total 4120 1500 Output Total 2398 1605 35 Balance 1722 -105 -35 Physical Exam - Physical Exam General Appearance: WD/WN Abdomen: non-tender (approp post op tenderness), soft, other (Binder in place and no drainage) Pelvic Exam: vaginal bleeding (none) Skin: normal color, warm/dry Extremities: normal range of motion, non-tender, pedal edema (minimal) ICD10 Worksheet Patient Problems: Problems Problem Status Onset S/P abdominal supracervical subtotal hysterectomy Acute S/P right oophorectomy Acute Status post bilateral salpingectomy Acute
--- NOTE | 2018-10-19 21:03 | GDS ---
SERVICE: Gynecology service. DISCHARGE CONDITION: Improved. PROGNOSIS: Excellent. ADMISSION SUMMARY: The patient is a 52-year-old para 3 white female with dysfunctional uterine bleed ing since the summer of 2016. The patient desired to proceed with definitive hysterectomy after eval uations that included a negative endometrial biopsy and reassuring ultrasounds. There was a small am ount of endometrial fluid that was initially seen on CAT scan and then slightly increased on ultrasou nd that could not be drained in an office procedure. The patient wanted to have a supracervical hyst erectomy as well as removal of her tubes as the patient really did not want to have any possible inte rference with sexual function. The patient already was having perimenopausal hormone symptoms, howev er, wanted to retain her ovaries for whatever function was left. The patient also was intending to h ave an abdominoplasty with Dr. Henry and will have the combined surgery. Risks and benefits were t horoughly discussed with the patient and the consent form signed. In addition to uterine concerns, t he patient has a history of hypertension, ADHD, depression, perimenopausal symptoms, and p elvic pain. The patient has had 2 prior vaginal deliveries and also a with a tubal ligatio n. HOSPITAL COURSE: The patient was admitted and underwent the above-named procedure without complicati ons. The patient had an open supracervical hysterectomy and bilateral salpingectomies with also a ri ght oophorectomy due to scar tissue. Following that, the patient had an abdominoplasty with adjuvant flank lipoplasty. The procedures were uncomplicated. The patient had an episode with increased flu id from her incisions on the night after surgery at which point, serosanguineous discharge was soaked through her dressing, and her bandages were replaced, and an additional abdominal binder was placed. The 2 drains that were left in by Dr. Henry were still draining; however, there was quite an heavenly tional amount of fluid excretion. The incisions appeared intact. This was not felt to be unusual by Dr. Henry. The patient had less of this leakage throughout the hospital stay. The patient had a drop in her hematocrit from 36% down to 30%, and she was started on iron. The patient remained afebr ile throughout the hospital course and initially managed her pain well with Duramorph and Toradol and then ibuprofen and Tylenol. The patient was quite symptomatic with hot flashes the first night afte r surgery, and also an estrogen patch was placed, which dramatically helped with her symptoms at [facility]. The patient only required 2 Oxy IR during the whole postoperative time and mainly maintained her pain management with ibuprofen and Tylenol. The patient's JALEEL drains were still continuing to drain n ormally at the time of discharge. The patient was discharged home on the morning of 09/21 to follow up as scheduled with Dr. Mathis as well as Dr. Henry's office. DISCHARGE CONDITION: Good. COMPLICATIONS: No complications through the hospitalization. /[id number]/MODL
--- NOTE | 2018-10-20 07:40 | GOP ---
DATE OF OPERATION: 09/19/2018 SURGEON: Shantel Mathis MD TRIM SETTER HELPER: Mikki Cedillo DO ANESTHESIA: General endotracheal anesthesia with a spinal for Duramorph placement prior to the surgery. ANESTHESIOLOGIST: Nate Melgar MD. PREOPERATIVE DIAGNOSIS: Pelvic pain, complex fluid in the endometrium. POSTOPERATIVE DIAGNOSIS: Pelvic pain, complex fluid in the endometrium. PROCEDURE PERFORMED: Abdominal supracervical hysterectomy, bilateral salpingectomies, right oophorectomy. FINDINGS: SPECIMENS: Specimen to Pathology: The uterus, both tubes and right ovary. INDICATIONS: The patient is a 52-year-old para 3 white female with dysfunctional perimenopausal bleeding. The patient had an endometrial ablation to manage the bleeding in August 2017. The patient has not had any subsequent bleeding, however, has had episodes of pelvic pain since June 2018. The patient had a CT scan and then an ultrasound showing the endometrial fluid collection that increased over time. Attempts were made to try to open the cervix for drainage from the endometrium. However, now the cervix has become stenotic. Attempts were very painful and unsuccessful. The patient now wanted to proceed with definitive management with a hysterectomy and cancer risk reduction of tubal removal. The patient strongly desires to retain her cervix as she does not want to have anything that alters change in sexual function. The patient also is in the hopes of keeping her ovaries even though she has already started menopausal symptoms with night sweats and trouble sleeping. Risks and benefits were fully discussed with the patient and the consent form signed. The patient is also planned for this surgery to be combined with Dr. Henry of Plastic Surgery to perform an abdominoplasty. DESCRIPTION OF PROCEDURE: The patient was taken to the operating room where following satisfactory general endotracheal anesthesia after a spinal for Duramorph placement, the patient was placed in supine position with a pillow under her knees. The patient had a Madison catheter placed within bladder and was drained clear urine. The patient's vagina and abdomen were prepped and the patient draped in usual sterile manner for abdominal procedure. The patient's position was checked and felt to be appropriate. The patient had received preoperative antibiotics and had SCDs on her lower extremities for DVT prevention. Dr. Henry of Plastic Surgery had previously seen the patient and marked in the perimeter areas of where he expected to close the abdomen. A Pfannenstiel incision was made in the lower abdomen in this identified area of excision. The incision was extended sharply down to the level of the fascia. The fascia was incised in midline and then extended sharply bilaterally with scissors. The fascia then was elevated off the underlying rectus muscles superiorly and inferiorly. The rectus muscles were up high and the parietal peritoneum was entered up high as well. This was done sharply and there was no noted omentum or bowel stuck up to the anterior abdominal wall. The peritoneum was opened inferiorly. The peritoneum and rectus muscles were pulled to each side. The O'Grayson-O'Sue abdominal wall retractor was introduced and was used to separate the incision. The bowel was packed up out of the field with 3 laparotomy pads. This provided good visualization. The uterus was irregular and enlarged approximately 10-12 cm. There was a small fullness to the tubal stump on the left possibly a cause of the patient's pelvic pain. Surgery was initiated on the patient's left. Two Clayton's were replaced along the lateral aspects of the uterus and upward traction applied. The round ligament on the left was grasped with 2 tonsils and this ligament was transected , and 0 Vicryl was used to tie off the pedicle. Following this, the utero- ovarian pedicle was identified where the broad ligament was , then an avascular window through the mesosalpinx was introduced bluntly. Through this opening, 2 Chloe's were used to clamp the utero-ovarian pedicle. 0 Vicryl then was used in 1st an imbricating stitch and then followed by a stick tie of 0 Vicryl to secure this pedicle. There was good hemostasis. There was lower colon scarred around the left ovary, especially under on the sidewall which made it difficult visualizing the ureter on the left. With the surgery essentially being performed away from the sidewall at the utero-ovarian pedicle , it was felt that the ureter was not at risk. Additional pedicles along the broad ligament were taken down on the left side of the uterus. They were clamped, then transected, and then tied off with 0 Vicryl. This proceeded down to the level of the internal os where the uterine vessels were secured, clamped , and then cut and tied off with 0 Vicryl. The anterior flap of the visceral peritoneum was sharply up across over the cervix. This was then bluntly dissected down to push the bladder off the anterior cervix. After the bladder was felt to be down and well cleared of the surgical area, then the cardinal ligament was taken on the lateral aspect of the cervix approximately penitentiary down the cervical length. Each pedicle was clamped, cut, and then tied off with 0 Vicryl. This dissection now was past the point of where the cervix would be truncated for the supracervical hysterectomy. The identical procedure was performed on the right, first identifying and then the round ligament. Following this, then the broad ligament was entered and dissected out laterally. A blunt window was made through the mesosalpinx identifying the utero-ovarian pedicle. This was clamped, cut, and tied off. Additional dissection down along the broad ligament was done to skeletonize down to the vessels of the uterine artery on the right. The anterior flap of the visceral peritoneum was transected up over the cervix to meet the anterior portion on the other side to fully developed the bladder flap. The bladder then was pushed well off the cervix. After the uterine vessels were secured on the right , then additional pedicles down along the cardinal ligament were taken penitentiary down the cervix. Each pedicle was clamped, cut, and tied off with 0 Vicryl. As the uterosacral ligaments in the posterior cul-de-sac were seen coming up and attached into the posterior cervical area, the cervix was truncated off above the attachment to the uterosacral ligament. The hook on the ligature instrument was utilized to separate off the cervix. This cautery was effective for good hemostasis. The bladder was felt to be free off the anterior lip. The uterus was removed in entirety and sent off the field to Pathology. A running stitch of O Vicryl was used to close the cervical stump. This was hemostatic. Attention now was turned to retrieve the tubes. The electrocautery with the LigaSure was used to separate off the fallopian tube from the left ovary. This was easily obtained with the LigaSure quickly and there was felt to be good hemostasis. Again, inferior to this area, the bowel was adherent and it was difficult to visualize the ureter on the left. Additional procedure was performed on the right the tube off the ovary. The fimbriated end of the tube was splayed out fully across the ovary on the right. It was difficult to dissect the tube free from the ovary. The tube was mostly excised ; however, on inspection of the ovary, there was continued bleeding at the site where there was still fimbria of the tube remnant on the ovary. It was decided due to the persistent bleeding and inability to obtain hemostasis and remove the fimbria totally to proceed with removal of the right ovary. The right ovary was grasped with a Huber clamp and elevated. The ureter was seen well on the right pelvic sidewall peristalsing normally. It lay well below the operative area. After the infundibulopelvic pedicle was isolated and clamped, it was cut and tied off with first a free tie and then a stick tie of 0 Vicryl. This provided good hemostasis of this area. The ovary was sent off the field to be sent to Pathology as well. Anneliese was used in the pelvis to provide for good hemostasis at the right adnexal area as well as over the cervical stump. Full inspection was performed and irrigation was performed. Madison catheter continued to drain clear urine. The laporative packs were taken out of the abdomen and initial counts were correct. The abdominal wall retractor then was removed and then additional inspection. There were no signs of trauma from the retractor. The omentum and bowel were brought down into the pelvic area. Following this, the fascia then was closed with a running layer of 0 Vicryl. This provided good hemostasis. Above the level of the fascia, there was good hemostasis. At this point, Dr. Henry and crew came in to complete the abdominoplasty. The Madison catheter was draining clear urine. Total IV fluids for the first part of the case were 1300 and estimated blood loss 200 cc. No sign of infection at the time of surgery. COMPLICATIONS: Incidental bleeding from the right ovary after removal of the right tube necessitating removal. Normal right ureter peristalsing normally. Bowel scarred in the left lower quadrant. /[id number]/MODL MTDD
== END 2018-09-21 14:19 | disposition home or self-care (01) | DRG 983 ==
LOC: EDSTATUS 07:15 → F3N 07:18 → OBSVTOIN 11:44 → FOB 14:30
PROVIDERS: ADMIT Obstetrics & Gynecology; ATTEND Obstetrics & Gynecology
PROC: 0UT07ZZ Resection of Right Ovary, Via Natural or Artificial Opening (ICD-10-PCS; principal; 2018-09-19 08:30)
PROC: 0UT77ZZ Resection of Bilateral Fallopian Tubes, Via Natural or Artificial Opening (ICD-10-PCS; principal; 2018-09-19 08:30)
PROC: 0UT97ZL Resection of Uterus, Supracervical, Via Natural or Artificial Opening (ICD-10-PCS; principal; 2018-09-19 08:30)
PROC: 0W0F0ZZ Alteration of Abdominal Wall, Open Approach (ICD-10-PCS; principal; 2018-09-19 08:30)
DX: R10.2 Pelvic and perineal pain (principal); E88.1 Lipodystrophy, not elsewhere classified; M62.08 Separation of muscle (nontraumatic), other site; I10 Essential (primary) hypertension; J45.909 Unspecified asthma, uncomplicated; F90.9 Attention-deficit hyperactivity disorder, unspecified type
CPT/HCPCS: G0009; J0171; J1100; J1650; J1885; J2001; J2274; J2370; J2405; J2704; J3370; Q9968

== ENCOUNTER → 2018-11-16 | Outpatient (CLI) | payer OTHER | LOC: FIMAGING 15:29 | PROVIDERS: ATTEND Family Medicine | DX: Z12.31 Encounter for screening mammogram for malignant neoplasm of breast (principal) ==